=== PATIENT | male | born 1990 | race Caucasian/White ===

== ENCOUNTER 2018-09-12 00:34 | Day surgery (SDC) | payer OTHER ==
[~2018-09-12] VITALS: Ht 167.6 cm; Wt 83.0 kg
[~2018-09-12 00:34] MED LIST: LINA145C PO
[2018-09-12] MEDS ORDERED: LIDOCAINE/SOD BICARB 8.4% SYR ID ONE (09:20)
[2018-09-12 09:21] VITALS: BP 140/95
[2018-09-12] MEDS: NORMOSOL R SOLN(*) 1000 ML BAG 1,000 ML IV PRN ×2 (10:41→10:43)
[2018-09-12 11:55] VITALS: BP 98/74
[2018-09-12 12:30] VITALS: BP 105/57
[2018-09-12 13:05] VITALS: BP 110/65
[2018-09-12 13:06] VITALS: BP 106/55
[2018-09-12 13:08] VITALS: BP 109/58
== END 2018-09-12 13:10 | disposition home or self-care (01) ==
LOC: OR 00:34
PROVIDERS: ATTEND Internal Medicine Gastroenterology
DX: K21.9 Gastro-esophageal reflux disease without esophagitis (principal); R19.7 Diarrhea, unspecified; K59.00 Constipation, unspecified; J45.909 Unspecified asthma, uncomplicated; F41.8 Other specified anxiety disorders; E78.00 Pure hypercholesterolemia, unspecified
CPT/HCPCS: 80305; 88305; 88313; 88344